=== PATIENT | male | born 1965 | race Caucasian/White ===

== ENCOUNTER 2017-10-22 10:18 | Emergency (ER) | payer OTHER ==
[~2017-10-22] VITALS: Ht 172.7 cm; Wt 81.7 kg
[~2017-10-22 10:18] MED LIST: AMOXICILLIN 50500 M1 PO; ANTIPYRINE-BENZ14 ML OT; APAP/CODEINE ELI5 M1 OR; AUGMENTIN 500-1 EACH PO; CIPRO HC OTIC S10 ML OTIC; CLEOCIN HCL150 M1 PO; CLEOCIN HCL150 MG PO; CLINDAMYCIN HC150 MG PO; HYDROCODONE-AP1 EAC6 PO; IBUPROFEN 800800 M1 PO; NOHOMEMEDICATIONS; NORCO 5-325 TA1 EACH PO; PENICILLIN V P500 MG PO
[2017-10-22] MEDS ORDERED: NAPROSYN500 MG PO (11:24)
[2017-10-22 11:32] VITALS: BP 130/87
== END 2017-10-22 11:34 | disposition home or self-care (01) ==
LOC: M.ERS 10:18
DX: M62.830 Muscle spasm of back (principal); F17.200 Nicotine dependence, unspecified, uncomplicated

== ENCOUNTER 2018-01-02 09:55 | Emergency (ER) | payer OTHER ==
[~2018-01-02] VITALS: Ht 170.2 cm; Wt 72.6 kg
[~2018-01-02 09:55] MED LIST changes: +NAPROSYN500 MG PO
[2018-01-02 09:58] VITALS: BP 117/73
[2018-01-02] MEDS ORDERED: KEFLEX500 M1 PO (10:09)
[2018-01-02] MEDS ORDERED: TRAMADOL 50 MG50 MG PO (10:10)
== END 2018-01-02 10:12 | disposition home or self-care (01) ==
LOC: M.ERS 09:55
DX: T23.002A Burn of unspecified degree of left hand, unspecified site, initial encounter (principal); T32.0 Corrosions involving less than 10% of body surface; L08.89 Other specified local infections of the skin and subcutaneous tissue; F17.210 Nicotine dependence, cigarettes, uncomplicated; T65.91XA Toxic effect of unspecified substance, accidental (unintentional), initial encounter; Y93.89 Activity, other specified; Y92.89 Other specified places as the place of occurrence of the external cause; Y99.8 Other external cause status